=== PATIENT | female | born 1995 | race Caucasian/White ===

== ENCOUNTER → 2017-09-21 16:54 | Outpatient (CLI) | payer OTHER, SELFPAY ==
[2017-09-21 20:28] LABS: Chlamydia Trachomatis by PCR Negative (Negative); Neisserai gonorrhoeae by PCR Negative (Negative); Probe Check PASS; Sample Adequacy Control PASS; Specimen Processing Control PASS
== END ==
PROVIDERS: Visit Provider Obstetrics & Gynecology
DX: Z34.00 Encounter for supervision of normal first pregnancy, unspecified trimester (principal)
CPT/HCPCS: 87086; 87088; 87491; 87591

== ENCOUNTER → 2017-10-23 15:28 | Outpatient (CLI) | payer OTHER, SELFPAY ==
[2017-10-23 16:23] LABS: Absolute Lymphocyte Count 1.77 X10^3/ul (0.83-4.51); Basophil# 0.02 X10^3/uL; Basophil% 0.3 % (0-1); Eosinophil# 0.06 X10^3/uL; Eosinophils% 0.8 % (0-5); Hemoglobin 13.3 g/dl (12.0-15.0); Lymphocyte # 1.77 X10^3/ul (4.0); Lymphocyte % 23.9 % (19-41); Mean Corp Hgb Conc 34.1 g/gl (32-36); Mean Corpuscular Volume 87.8 fL (81-99); Mean Platelet Vol. 9.4 fl (6.2-12.0); Monocyte# 0.61 X10^3/uL; Monocyte% 8.2 % (0-10); Neutrophil # 4.95 X10^3/uL (2.7-7.7); Neutrophil % 66.7 % (47-70); Platelet Count 184 K/mm3 (150-450); RBC Distribution Width CV 12.9 % (11.6-14.6); RBC Distribution Width SD 41.6 fl (35.1-43.9); Red Blood Count 4.44 M/mm3 (4.2-5.4); White Blood Count 7.4 K/mm3 (4.4-11.0)
[2017-10-23 16:25] LABS: POSITIVE COUNT NO; POSITIVE DIFFERENTIAL NO; POSITIVE MORPHOLOGY NO
[2017-10-24 09:46] LABS: HIV - WCH Non-Reactive (Nonreactive); Rubella IgG 3.1 IU/mL
[2017-10-25 08:45] LABS: HEPATITIS B SURFACE AG Negative (Negative)
[2017-10-26 05:01] LABS: Rapid Plasmin Reagin (RPR) NONREACTIVE (NONREACTIVE)
== END ==
PROVIDERS: Visit Provider Obstetrics & Gynecology
DX: Z34.00 Encounter for supervision of normal first pregnancy, unspecified trimester (principal)
CPT/HCPCS: 36415; 85025; 86592; 86703; 86762; 86850; 86900; 87340

== ENCOUNTER → 2017-12-05 12:07 | Outpatient (CLI) | payer OTHER, SELFPAY ==
--- NOTE | 2017-12-05 12:30 | US_ITS ---
STUDY: SECOND AND THIRD TRIMESTER OBSTETRICAL ULTRASOUND REASON FOR EXAM: Female, 22 years old. Routine survey. LMP: December 21, 2017. TECHNIQUE: Transabdominal PRIOR ULTRASOUND: None. FINDINGS: There is a single intrauterine fetus. The fetus is in a breech presentation. There is demonstrated cardiac activity with a heart rate of 150 bpm. There is a normal amniotic fluid volume. The largest amniotic fluid pocket measures 5.3 cm x 7.9 cm.The placenta is fundal and not low-lying. There are Grade 1 placental changes. The cervix measures 5.8 cm in length. The adnexal regions are not visualized. BIOMETRY: BPD: 4.7 cm: 20 weeks, 2 days HC: 17.48 cm: 20 weeks, 1 days AC: 14.46 cm: 19 weeks, 6 days FL: 2.95 cm: 19 weeks, 1 days CI: 80% FL/BPD: 63% FL/HC: FL/AC: 20% HC/AC: 1.21 age by current US: 19 weeks, 6 days. CRYSTAL by current US: April 25, 2018. Estimated weight: 298 grams, +/- 44 grams, 61 %. Age by LMP: 19 weeks, 2 days. CRYSTAL by LMP: April 29, 2018. ANATOMY: Gender: Male Cranium: Normal lateral ventricles. Normal choroid plexus. Normal cerebellum. Normal cisterna magna. Normal face, nose and lips. Chest: Normal 4-chamber heart. Abdomen/Pelvis: Normal diaphragm. Normal stomach. Normal abdominal wall. Normal cord insertion. Normal 3 vessel cord. Normal kidneys. Normal bladder. Spine: Normal cervical spine. Normal thoracic spine. Normal lumbar spine. Normal sacrum. Extremities: Normal bilateral upper extremities. Normal bilateral lower extremities. US/OB Anatomy Scan IMPRESSION: Single live intrauterine gestation with mean gestational age of 19 weeks and 6 days. Electronically Signed: Veto Ma MD at 15:27 EDT Tel [phone], Service support ,
== END ==
PROVIDERS: Visit Provider Obstetrics & Gynecology
DX: Z34.00 Encounter for supervision of normal first pregnancy, unspecified trimester (principal)
CPT/HCPCS: 76805

== ENCOUNTER → 2018-02-05 11:15 | Outpatient (CLI) | payer OTHER, SELFPAY ==
[2018-02-05 12:25] LABS: Absolute Lymphocyte Count 1.33 X10^3/ul (0.83-4.51); Absolute Neutrophil Count 5.9 X10^3/uL (2.0-7.7); Basophil# 0.01 X10^3/uL; Basophil% 0.1 % (0-1); Eosinophil# 0.05 X10^3/uL; Eosinophils% 0.6 % (0-5); Hematocrit 34.5 % (37-47); Hemoglobin 11.6 g/dl (12.0-15.0); Lymphocyte # 1.33 X10^3/ul (4.0); Mean Corp Hgb Conc 33.6 g/gl (32-36); Mean Corpuscular Volume 92.2 fL (81-99); Mean Platelet Vol. 9.7 fl (6.2-12.0); Monocyte# 0.52 X10^3/uL; Monocyte% 6.6 % (0-10); Neutrophil # 5.92 X10^3/uL (2.7-7.7); Neutrophil % 75.6 % (47-70); Platelet Count 174 K/mm3 (150-450); RBC Distribution Width CV 13.2 % (11.6-14.6); RBC Distribution Width SD 44.6 fl (35.1-43.9); Red Blood Count 3.74 M/mm3 (4.2-5.4); White Blood Count 7.8 K/mm3 (4.4-11.0)
[2018-02-05 12:29] LABS: POSITIVE COUNT NO; POSITIVE DIFFERENTIAL NO; POSITIVE MORPHOLOGY NO
[2018-02-05 12:45] LABS: Glucose Challenge Gest 1H 50g 82 mg/dL (70-140)
== END ==
PROVIDERS: Nurse Practitioner Women's Health; Visit Provider Obstetrics & Gynecology
DX: Z34.90 Encounter for supervision of normal pregnancy, unspecified, unspecified trimester (principal)
CPT/HCPCS: 36415; 82950; 85025; 86850; 86900

== ENCOUNTER → 2018-04-02 16:08 | Outpatient (CLI) | payer OTHER, SELFPAY ==
[2018-04-02 18:58] LABS: Group B Strep DNA By PCR Negative (Negative); Internal Control PASS; Probe Check PASS; Specimen Processing Control PASS
== END ==
PROVIDERS: Referring Provider Nurse Practitioner Women's Health; Visit Provider Nurse Practitioner Women's Health
DX: Z34.90 Encounter for supervision of normal pregnancy, unspecified, unspecified trimester (principal)
CPT/HCPCS: 87081; 87653

== ENCOUNTER 2018-05-02 19:34 | Inpatient (IN) | payer OTHER, SELFPAY ==
[2018-05-02 20:31] VITALS: BMI 30.6
[2018-05-02] MEDS: Lactated Ringers 1,000 ML 50 ML IV ×2 (20:40→23:38)
--- NOTE | 2018-05-02 21:03 | PCM.HP.OB ---
- Problem List (1) SROM (spontaneous rupture of membranes) Status: Acute (2) Status: Acute Qualifiers: Comment: genetic and NTD screening declined. anatomy scan normal. (3) Contraceptive management Status: Acute Qualifiers: Comment: Mirena IUD pp (4) Rubella non-immune status, antepartum Status: Acute (5) Rh negative status during Status: Acute Qualifiers: Comment: rhogam 28 weeks prn (6) Supervision of normal Status: Acute Qualifiers: Comment: CRYSTAL 04/29/18 boy Radhames History Date of Admission: 05/02/18 Final CRYSTAL: 04/29/18 Gestational age: 40 Weeks and 3 Days History of this : This is a 22 year-old, at 40w3d weeks gestational age presents IAL with SROM clear fluid. she denies any vb and admits good fm. she has had an uncomplicated Allergies No Known Allergies Allergy (Verified 05/02/18 20:30) Home Medications: Home Medications vitamin,calcium,treodvco-fmjw-vzwai acid tablet 1 tab PO QDAY 09/21/17 Smoking Status: Never smoker Alcohol: None Number of Fetus(es): 1 Heart Tracins moderate variability reactive cat I tracing TOCO Analysis: q2-3 History Past Pregnancies: Past Pregnancies Delivery Date Name GA/Weeks Outcome Route Weight Gender Labor Length Anesthesia Delivery Location Provider FOB Labs: Mom's Labs & Results 05/02/18 05/02/18 20:40 20:40 WBC Pending RBC Pending Hgb Pending Hct Pending MCV Pending MCH Pending MCHC Pending RDW Pending RDW Differential Pending Plt Count Pending Blood Type Pending Antibody Screen Pending Social History Smoking Status Never smoker Expected Delivery Method: Spontaneous Vaginal Review of Systems Constitutional: Denies: Fever, Malaise Eyes: Denies: Blurred vision, Vision Change HEENT: Denies: Head Aches, Visual Changes Cardiovascular: Denies: Chest Pain, Palpitations Respiratory: Denies: Cough, Shortness of Breath, Wheezing Gastrointestinal: Denies: Abdominal Pain, Diarrhea, Nausea, Vomiting Genitourinary: Denies: Dysuria, Hematuria Musculoskeletal: Denies: Joint Pain, Muscle pain Skin: Denies: Lesions, Rash Neurological: Denies: Blurred vision, Focal weakness, Headaches Psychiatric: Denies: Anxiety, Depression Endocrine: Denies: Heat/ Cold Intolerance Hematologic/ Lymphatic: Denies: Easy Bruising, Easy Bleeding Physical Exam General: Alert, Cooperative, No apparent distress HEENT: Atraumatic, Normocephalic. Negative for: Thyromegaly, Lymphadenopathy Cardiovascular: Regular rate Lungs: Normal air movement Abdomen: Soft, Non Tender, Gravid Neurological: Deep Tendon Reflexes 2+/4 and Symmetrical, Neuro grossly intact. Negative for: Clonus EDUCATIONAL AID: Normal external genitalia. Negative for: Vulvar lesions Estimated gestational size: Appropriate for gestational size Presentation: Cephalic Assessment/Plan All Active Problems (Last Reviewed 05/02/18 @ 11:35 by Génesis Wong) SROM (spontaneous rupture of membranes) (Acute) (Acute) Contraceptive management (Acute) Rubella non-immune status, antepartum (Acute) Rh negative status during (Acute) Supervision of normal (Acute) Influenza B (Resolved) This is a 22 year-old, at 40w3d weeks gestational age presents IAL SROM Patient presents IAL, plan expectant management for , pitocin PRN. Pain management: plans epidural. GBS neg. Management of any complications: none I have reviewed the [facility] and made any clinically relevant updates.
--- NOTE | 2018-05-02 21:06 | HP.PCM_ITS ---
- Problem List (1) SROM (spontaneous rupture of membranes) Status: Acute (2) Status: Acute Qualifiers: Comment: genetic and NTD screening declined. anatomy scan normal. (3) Contraceptive management Status: Acute Qualifiers: Comment: Mirena IUD pp (4) Rubella non-immune status, antepartum Status: Acute (5) Rh negative status during Status: Acute Qualifiers: Comment: rhogam 28 weeks prn (6) Supervision of normal Status: Acute Qualifiers: Comment: CRYSTAL 04/29/18 boy Radhames History Date of Admission: 05/02/18 Final CRYSTAL: 04/29/18 Gestational age: 40 Weeks and 3 Days History of this : This is a 22 year-old, at 40w3d weeks gestational age presents IAL with SROM clear fluid. she denies any vb and admits good fm. she has had an uncomplicated Allergies No Known Allergies Allergy (Verified 05/02/18 20:30) Home Medications: Home Medications vitamin,calcium,kgfrilyn-tgxn-cyonf acid tablet 1 tab PO QDAY 09/21/17 Smoking Status: Never smoker Alcohol: None Number of Fetus(es): 1 Heart Tracins moderate variability reactive cat I tracing TOCO Analysis: q2-3 History Past Pregnancies: Past Pregnancies Delivery Date Name GA/Weeks Outcome Route Weight Gender Labor Length Anesthesia Delivery Location Provider FOB Labs: Mom's Labs & Results 05/02/18 05/02/18 20:40 20:40 WBC Pending RBC Pending Hgb Pending Hct Pending MCV Pending MCH Pending MCHC Pending RDW Pending RDW Differential Pending Plt Count Pending Blood Type Pending Antibody Screen Pending Social History Smoking Status Never smoker Expected Delivery Method: Spontaneous Vaginal Review of Systems Constitutional: Denies: Fever, Malaise Eyes: Denies: Blurred vision, Vision Change HEENT: Denies: Head Aches, Visual Changes Cardiovascular: Denies: Chest Pain, Palpitations Respiratory: Denies: Cough, Shortness of Breath, Wheezing Gastrointestinal: Denies: Abdominal Pain, Diarrhea, Nausea, Vomiting Genitourinary: Denies: Dysuria, Hematuria Musculoskeletal: Denies: Joint Pain, Muscle pain Skin: Denies: Lesions, Rash Neurological: Denies: Blurred vision, Focal weakness, Headaches Psychiatric: Denies: Anxiety, Depression Endocrine: Denies: Heat/ Cold Intolerance Hematologic/ Lymphatic: Denies: Easy Bruising, Easy Bleeding Physical Exam General: Alert, Cooperative, No apparent distress HEENT: Atraumatic, Normocephalic. Negative for: Thyromegaly, Lymphadenopathy Cardiovascular: Regular rate Lungs: Normal air movement Abdomen: Soft, Non Tender, Gravid Neurological: Deep Tendon Reflexes 2+/4 and Symmetrical, Neuro grossly intact. Negative for: Clonus SENIOR TECHNICAL SUPPORT ENGINEER: Normal external genitalia. Negative for: Vulvar lesions Estimated gestational size: Appropriate for gestational size Presentation: Cephalic Assessment/Plan All Active Problems (Last Reviewed 05/02/18 @ 11:35 by Génesis Wong) SROM (spontaneous rupture of membranes) (Acute) (Acute) Contraceptive management (Acute) Rubella non-immune status, antepartum (Acute) Rh negative status during (Acute) Supervision of normal (Acute) Influenza B (Resolved) This is a 22 year-old, at 40w3d weeks gestational age presents IAL SROM Patient presents IAL, plan expectant management for , pitocin PRN. Pain management: plans epidural. GBS neg. Management of any complications: none I have reviewed the [facility] and made any clinically relevant updates.
[2018-05-02 21:08] LABS: Hematocrit 37.5 % (37-47); Hemoglobin 12.5 g/dl (12.0-15.0); Mean Corp Hgb Conc 33.3 g/gl (32-36); Mean Corpuscular Hgb 30.1 pg (27.0-32.0); Mean Corpuscular Volume 90.4 fL (81-99); Platelet Count 186 K/mm3 (150-450); RBC Distribution Width CV 13.4 % (11.6-14.6); Red Blood Count 4.15 M/mm3 (4.2-5.4); White Blood Count 8.6 K/mm3 (4.4-11.0)
[2018-05-02 21:11] LABS: Scan Indicated on CBC? Y/N NO
[2018-05-03] MEDS: fentaNYL-bupivacaine (epidural) 100 ML BAG EPIDURAL ×5 (00:16→21:05)
[2018-05-03] MEDS: Oxytocin 30 units/NS 500 ml 30 UNITS/500 ML IV.SOLN IV ×2 (01:56→18:47)
[2018-05-03] MEDS: Lactated Ringers 1,000 ML 50 ML IV ×4 (04:42→19:26)
[2018-05-03] MEDS: Ondansetron 4 MG/2 ML Vial IV (07:29)
--- NOTE | 2018-05-03 15:41 | PCM.PN.BLA ---
Progress Note fht 120-130 moderate variability reactive no decels. cat I tracing. continue pit per protocol.
[2018-05-04] MEDS: Lactated Ringers 1,000 ML 50 ML IV (00:37)
[2018-05-04] MEDS: fentaNYL-bupivacaine (epidural) 100 ML BAG EPIDURAL (01:57)
[2018-05-04] MEDS: Ondansetron 4 MG/2 ML Vial IV (03:39)
[2018-05-04] MEDS: Oxytocin 30 units/NS 500 ml 30 UNITS/500 ML IV.SOLN 334 UNITS IV (05:14)
[2018-05-04] MEDS: Oxytocin 30 units/NS 500 ml 30 UNITS/500 ML IV.SOLN 167 UNITS IV (05:44)
--- NOTE | 2018-05-04 06:29 | PCM.OB.VAG ---
- Problem List (1) SROM (spontaneous rupture of membranes) Status: Acute (2) Status: Acute Qualifiers: Comment: genetic and NTD screening declined. anatomy scan normal. (3) Contraceptive management Status: Acute Qualifiers: Comment: Mirena IUD pp (4) Rubella non-immune status, antepartum Status: Acute (5) Rh negative status during Status: Acute Qualifiers: Comment: rhogam 28 weeks prn (6) Supervision of normal Status: Acute Qualifiers: Comment: CRYSTAL 04/29/18 boy Radhames Vaginal Delivery Maternal Presentation: Spontaneous Rupture of Membranes Method of Induction: Pitocin Amniotic Membrane Rupture Type: Spontaneous at home Amniotic Fluid Description: Clear Final CRYSTAL: 04/29/18 Gestational age: 40 Weeks and 6 Days Date of Procedure: 05/04/18 Pre-Operative Diagnosis: SROM Post-Operative Diagnosis: Same Surgery/ Procedure Performed: Spontaneous Vaginal Delivery Type of Anesthesia: Epidural Description of Procedure: Patient began pushing and delivered the head in the CYNDEE presentation. The head was delivered atraumatically . The anterior and posterior shoulders delivered without complication followed by the rest of the and the infant was placed on the maternal abdomen. Delayed cord clamping was employed for approximately 60 seconds. Cord was clamped and cut and gentle traction was applied to the cord and the placenta delivered spontaneously immediately following it was noted to be intact with three-vessel cord. The perineum and vagina were inspected and noted to have a small first-degree perineal laceration that was repaired in the usual fashion with 3-0 Vicryl repeat. EBL was within normal limits. Patient and infant tolerated delivery well. Presentation: CYNDEE Placental Delivery Description: Spontaneous Cord Vessel Description: 3 Vessels Cord Entanglement: None A gender: Male Episiotomy Description: None Laceration: Perineal Extension/lac, 1st degree Medications given after delivery: IV Pitocin Complications: None
--- NOTE | 2018-05-04 07:05 | PLAC_PTH ---
PATIENT: BELIA BEACH LOC: [facility] U#:[id number] AGE/SX: ROOM: WP017 RE05/02/[address]: Dr. Rosa Zhou MD : [id number] BED: 1 DIS: 05/06/2018 SPEC #: [id number] RECD: 05/04/18 07:23 STATUS: KIERA REAlexus #: [id number] DELMY: 05/04/18 07:[address]: Rosa Zhou DEPT: SURGICAL PATHOLOGY RECD BY: Judd Zendejas ENTERED: 05/06/18 09:38 SP TYPE: PLACENTA OTHR DR: No Primary Care Phys Tissues: Placenta, NOS Procedures: Surgery Specimen Level V HEADER OPERATION: Vaginal delivery PRE-OP DIAGNOSIS: Vaginal delivery TISSUE SUBMITTED: Placenta MICROSCOPIC DIAGNOSIS Placenta: Placental disc - third trimester placenta (450 gm). - Focal acute vasculitis of subamnionic blood vessels. Membranes - acute chorioamnionitis. Umbilical cord - three blood vessels and acute funisitis. HERB:alban 05/07/18 MICROSCOPIC DESCRIPTION Slides are reviewed. GROSS DESCRIPTION SPECIMEN: PLACENTA / CLINICAL INFORMATION: A. Weight: 3.32 kg B. Gestational Age: 40 weeks C. Sex: Male PLACENTAL WEIGHT (POST FIXATION): 450 gm PLACENTAL DIMENSIONS: 19 x 17 x 3 cm PLACENTAL SHAPE: Usual ovoid PLACENTAL WEIGHT FOR GESTATIONAL AGE: Within 10-99th percentile MEMBRANES - Present A. Insertion: Marginal B. Site of rupture from edge: 7 cm from edge of placental disc C. Color of membrane: Kemp, mucoidy D. Abnormalities: None UMBILICAL CORD - Present A. Color: Kemp-galvin B. Insertion: Paracentral C. Length: 30 cm D. Diameter: 1 cm E. Number of vessels: Three F. Abnormalities: None PLACENTAL DISC - Present A. Color of surface: Kemp-galvin B. surface abnormalities: None C. Maternal cotyledons: Intact with minimal tears D. Attached retro placental clot: No clot E. Cut surface: Dark red and spongy F. Lesions: None G. Separate clot: Absent SECTIONS SUBMITTED: 1. Membrane roll 2. Cord, maternal end 3. Cord, end 4. Placental disc, and maternal surfaces 5. Placental disc, and maternal surfaces 6. Placental disc, and maternal surfaces SJ:alban 05/06/18 TC:2 CPT: 79894
[2018-05-04 07:23] LABS: Pathology Specimen OB SEE PATHOLOGY REPORT
[2018-05-04 07:30] VITALS: BP 118/63; PULSE 107; RESP 20; TEMP 37.2
[2018-05-04] MEDS: Naproxen 250 MG Tablet PO ×2 (07:44→16:32)
[2018-05-04] MEDS: Lactated Ringers 1,000 ML 15 ML IV (07:44)
--- NOTE | 2018-05-04 08:09 | EKG12_ITS ---
Test Reason : ARRYTHMIA Blood Pressure : / mmHG Vent. Rate : 098 BPM Atrial Rate : 098 BPM P-R Int : 138 ms QRS Dur : 082 ms QT Int : 348 ms P-R-T Axes : 035 047 036 degrees QTc Int : 444 ms Normal sinus rhythm Normal ECG Confirmed by JOSE SWANN, DAWSON ([id number]), makeup editor MONAE JACKSON ([id number]) on 05/09/2018 3:56:00 PM Referred By: Rosa Zhou Confirmed By:DAWSON GARCIA MD
[2018-05-04] MEDS: 0.9% Saline Lock 10 ML Syringe IV (08:36)
[2018-05-04 12:45] VITALS: BP 120/63; PULSE 73; RESP 16; TEMP 36.6
[2018-05-04 16:20] VITALS: BP 123/75; PULSE 81; RESP 16; TEMP 36.5
[2018-05-04] MEDS: Acetaminophen 500 MG Tablet 1000 MG PO (18:27)
[2018-05-04 19:50] VITALS: BP 131/59; PULSE 73; RESP 16; TEMP 36.6
[2018-05-05] VITALS: BP 111/55; PULSE 63; RESP 16; TEMP 36.4
[2018-05-05] MEDS: Naproxen 250 MG Tablet PO (01:39)
[2018-05-05 04:00] VITALS: BP 115/63; PULSE 63; RESP 16; TEMP 36.4
[2018-05-05 08:55] VITALS: BP 120/79; PULSE 70; RESP 18; TEMP 36.5
--- NOTE | 2018-05-05 10:39 | PCM.PN.OB ---
Patient Problems: Active and Suspected Problems (Last Reviewed 05/02/18 @ 11:35 by Génesis Wong) SROM (spontaneous rupture of membranes) (Acute) Subjective: doing well no complaints - Physical Exam General: Alert, Oriented x3 Vital Signs Temp Pulse Resp BP 97.7 F L 70 18 120/79 05/05/18 08:55 05/05/18 08:55 05/05/18 08:55 05/05/18 08:55 Weight: 178 lb 9.191 oz Body Mass Index (BMI) 30.6 Intake and Output for Last 24 Hours 05/03/18 05/04/18 05/05/18 23:59 23:59 23:59 Intake Total 3982 / 3982 5796 / 5796 Output Total 3650 / 3650 1445 / 1445 Balance 332 / 332 4351 / 4351 Medical Necessity - Tobacco Use Smoking Status: Never smoker Assessment/Plan All Active Problems (Last Reviewed 05/02/18 @ 11:35 by Génesis Wong) SROM (spontaneous rupture of membranes) (Acute) (Acute) Contraceptive management (Acute) Rubella non-immune status, antepartum (Acute) Rh negative status during (Acute) Supervision of normal (Acute) Influenza B (Resolved) s/p PPD # 1 1. routine post delivery care 2. breast feeding- support given 3. rh neg- rhogam 4. rubella non immune- give MMR
[2018-05-05 14:10] VITALS: BP 119/73; PULSE 86; RESP 20; TEMP 36.7
[2018-05-05 19:36] VITALS: BP 133/78; PULSE 76; RESP 17; TEMP 36.9; O2SAT 98
[2018-05-06 00:06] VITALS: BP 108/55; PULSE 62; RESP 15; TEMP 36.9; O2SAT 99
[2018-05-06 04:54] VITALS: BP 137/64; PULSE 81; RESP 18; TEMP 36.7; O2SAT 97
[2018-05-06 07:30] VITALS: BP 120/76; PULSE 76; RESP 16; TEMP 36.6
--- NOTE | 2018-05-06 08:00 | PCM.PN.OB ---
Patient Problems: Active and Suspected Problems (Last Reviewed 05/02/18 @ 11:35 by Génesis Wong) SROM (spontaneous rupture of membranes) (Acute) Subjective: Doing well. Denies CP, SOB. States feels well emotionally. Pain controlled. - Physical Exam General: Alert, Oriented x3 Abdomen: Soft, Non Tender, - - FF at U Vital Signs Temp Pulse Resp BP Pulse Ox 97.9 F 76 16 120/76 97 05/06/18 07:30 05/06/18 07:30 05/06/18 07:30 05/06/18 07:30 05/06/18 04:54 Oxygen Delivery Method Room Air Weight: 178 lb 9.191 oz Body Mass Index (BMI) 30.6 Intake and Output for Last 24 Hours 05/04/18 05/05/18 05/06/18 23:59 23:59 23:59 Intake Total 5796 / 5796 Output Total 1445 / 1445 Balance 4351 / 4351 Medical Necessity - Tobacco Use Smoking Status: Never smoker Assessment/Plan All Active Problems (Last Reviewed 05/02/18 @ 11:35 by Génesis Wong) SROM (spontaneous rupture of membranes) (Acute) (Acute) Contraceptive management (Acute) Rubella non-immune status, antepartum (Acute) Rh negative status during (Acute) Supervision of normal (Acute) Influenza B (Resolved) PPD#2: Routine care. . Pain controlled. Needs rhogam and rubella. No depression concerns. Home today.
--- NOTE | 2018-05-06 08:04 | DCINST_ITS ---
Additional Instructions: If you experience any of the following, contact your healthcare provider. * Bleeding that soaks a pad every hour for 2 hours * Fever 100.4 or higher * Unrelieved incision or abdominal pain * Swelling, redness, discharge or bleeding from your incision or episiotomy site * Your incision begins to separate * Problems urinating (including inability to urinate or burning while urinating). * Visual changes * Severe headache * Flu-like symptoms * Pain or redness in one of both of your breasts * Pain, warmth, tenderness or swelling in your legs, especially the calf area * Frequent nausea and vomiting * Symptoms of depression or anxiety If you experience any of the following, call 911 or go to the nearest Emergency Room. * Chest pain * Problems breathing * Seizure activity * Partial or complete paralysis of a body part, slurred speech, weakness or drooping of the face, or a sudden inability to walk or hold your balance Allergies/Adverse Reactions: Allergies No Known Allergies Allergy (Verified 05/02/18 20:30) Medications to take at Discharge vitamin,calcium,wwytywgy-amaa-ovfee acid tablet 1 tab PO QDAY 09/21/17 Primary Care Physician: Care Physician,No Primary [Primary Care Provider] - Test Results: Test results from this visit will be discussed in further detail at your follow- up appointment, if applicable.
--- NOTE | 2018-05-06 08:04 | PCM.DCVAG ---
Additional Instructions: If you experience any of the following, contact your healthcare provider. Bleeding that soaks a pad every hour for 2 hours Fever 100.4 or higher Unrelieved incision or abdominal pain Swelling, redness, discharge or bleeding from your incision or episiotomy site Your incision begins to separate Problems urinating (including inability to urinate or burning while urinating). Visual changes Severe headache Flu-like symptoms Pain or redness in one of both of your breasts Pain, warmth, tenderness or swelling in your legs, especially the calf area Frequent nausea and vomiting Symptoms of depression or anxiety If you experience any of the following, call 911 or go to the nearest Emergency Room. Chest pain Problems breathing Seizure activity Partial or complete paralysis of a body part, slurred speech, weakness or drooping of the face, or a sudden inability to walk or hold your balance Allergies/Adverse Reactions: Allergies No Known Allergies Allergy (Verified 05/02/18 20:30) Medications to take at Discharge vitamin,calcium,lhqllbuh-qxzm-uvfqf acid tablet 1 tab PO QDAY 09/21/17 Primary Care Physician: Care Physician,No Primary [Primary Care Provider] - Test Results: Test results from this visit will be discussed in further detail at your follow-up appointment, if applicable.
[2018-05-06 11:45] VITALS: BP 131/84; PULSE 75; RESP 18; TEMP 36.7
[2018-05-07 14:43] LABS: Pathology Specimen OB SEE PATHOLOGY REPORT
== END 2018-05-06 13:00 | disposition home or self-care (01) | DRG 806 ==
PROVIDERS: Admitting Provider Obstetrics & Gynecology; Visit Provider Obstetrics & Gynecology
DX: O70.0 First degree perineal laceration during delivery (principal); O36.0930 Maternal care for other rhesus isoimmunization, third trimester, not applicable or unspecified; Z37.0 Single live birth; Z3A.40 40 weeks gestation of pregnancy
CPT/HCPCS: 59025; 59050; 76815; 85027; 85461; 86850; 86900; 88307; 90384; 93005; 99218; J7120; A4216; G0378; J0295; J2405; J2790

== ENCOUNTER → 2018-06-14 16:58 | Outpatient (CLI) | payer OTHER, SELFPAY ==
[2018-06-14 11:28] VITALS: BMI 25.9
[2018-06-19 09:26] LABS: HPV Reflexed? NOT INDICATED
== END ==
PROVIDERS: Referring Provider Obstetrics & Gynecology; Visit Provider Obstetrics & Gynecology
DX: Z12.4 Encounter for screening for malignant neoplasm of cervix (principal)
CPT/HCPCS: 87624; 88175; G0145

== ENCOUNTER 2021-08-15 16:15 | Outpatient (CLI) | payer OTHER, SELFPAY ==
[2021-08-18 16:48] LABS: HPV Reflexed? NOT INDICATED
== END 2021-08-15 23:59 | disposition home or self-care (01) ==
LOC: LABSPEC 16:16
PROVIDERS: Visit Provider Nurse Practitioner Women's Health
DX: Z12.4 Encounter for screening for malignant neoplasm of cervix (principal)
CPT/HCPCS: 88175; G0145

== ENCOUNTER → 2022-04-20 | Outpatient (CLI) | payer OTHER, SELFPAY ==
[2022-04-20 10:51] LABS: Absolute Neutrophil Count 3.4 X10^3/uL (2.0-7.7); Basophil# 0.03 X10^3/uL; Basophil% 0.5 % (0-1); Eosinophil# 0.07 X10^3/uL; Eosinophils% 1.2 % (0-5); Hematocrit 40.1 % (37-47); Hemoglobin 13.6 g/dL (12.0-15.0); Lymphocyte % 29.2 % (19-41); Mean Corp Hgb Conc 33.9 g/dL (32-36); Mean Corpuscular Hgb 30.4 pg (27.0-32.0); Mean Corpuscular Volume 89.5 fL (81-99); Mean Platelet Vol. 9.8 fl (6.2-12.0); Monocyte# 0.61 X10^3/uL; Monocyte% 10.5 % (0-10); NRBC Flagged by Analyzer 0 % (0-5); Neutrophil % 58.4 % (47-70); Platelet Count 207 K/mm3 (150-450); RBC Distribution Width CV 11.9 % (11.6-14.6); RBC Distribution Width SD 38.7 fl (35.1-43.9); Red Blood Count 4.48 M/mm3 (4.2-5.4); White Blood Count 5.8 K/mm3 (4.4-11.0)
[2022-04-20 12:33] LABS: HIV - WCH Non-Reactive (Nonreactive); Hepatitis B Surface Antigen Non-Reactive (Nonreactive); Hepatitis C Antibody Non-Reactive (Nonreactive); Rubella IgG Reactive (Nonreactive); Syphilis Antibodies Non-reactive
[2022-04-24 22:06] LABS: Chlamydia By Nucleic Acid AMP Negative (Negative)
[2022-04-25 12:59] LABS: Gonococcus By Nucleic Acid AMP Negative (Negative)
== END | disposition home or self-care (01) ==
PROVIDERS: Referring Provider Obstetrics & Gynecology; Visit Provider Obstetrics & Gynecology
DX: Z34.91 Encounter for supervision of normal pregnancy, unspecified, first trimester (principal)
CPT/HCPCS: 36415; 85025; 86703; 86762; 86780; 86803; 86850; 86900; 86901; 87086; 87088; 87340; 87491; 87591

== ENCOUNTER → 2022-09-06 | Outpatient (CLI) | payer OTHER, SELFPAY ==
[2022-09-06 15:36] LABS: Glucose Challenge Gest 1H 50g 98 mg/dL (70-140)
[2022-09-06 16:30] LABS: Absolute Neutrophil Count 5.1 X10^3/uL (2.0-7.7); Basophil# 0.02 X10^3/uL; Basophil% 0.3 % (0-1); Eosinophil# 0.06 X10^3/uL; Eosinophils% 0.9 % (0-5); Hemoglobin 11.8 g/dL (12.0-15.0); Lymphocyte % 17.1 % (19-41); Mean Corp Hgb Conc 34.7 g/dL (32-36); Mean Corpuscular Hgb 31.4 pg (27.0-32.0); Mean Corpuscular Volume 90.4 fL (81-99); Mean Platelet Vol. 10.2 fl (6.2-12.0); Monocyte# 0.58 X10^3/uL; Monocyte% 8.3 % (0-10); NRBC Flagged by Analyzer 0 % (0-5); Neutrophil # 5.14 X10^3/uL (2.7-7.7); Neutrophil % 73.3 % (47-70); Platelet Count 176 K/mm3 (150-450); RBC Distribution Width CV 12.9 % (11.6-14.6); RBC Distribution Width SD 42.5 fl (35.1-43.9); Red Blood Count 3.76 M/mm3 (4.2-5.4)
== END | disposition home or self-care (01) ==
LOC: LAB 13:36
PROVIDERS: Referring Provider Obstetrics & Gynecology; Visit Provider Obstetrics & Gynecology
DX: O36.0990 Maternal care for other rhesus isoimmunization, unspecified trimester, not applicable or unspecified (principal); Z13.1 Encounter for screening for diabetes mellitus; Z3A.00 Weeks of gestation of pregnancy not specified
CPT/HCPCS: 36415; 82950; 85025; 86900; 86901

== ENCOUNTER → 2022-10-25 | Outpatient (CLI) | payer OTHER, SELFPAY ==
[2022-10-25 15:21] LABS: ROM Internal Control Test YES-OK TO RESULT pt. (Internal QC); ROM Patient Test Negative (Negative)
== END | disposition home or self-care (01) ==
PROVIDERS: Visit Provider Obstetrics & Gynecology
DX: O26.899 Other specified pregnancy related conditions, unspecified trimester (principal); N89.8 Other specified noninflammatory disorders of vagina; Z3A.00 Weeks of gestation of pregnancy not specified
CPT/HCPCS: 84112; 87081

== ENCOUNTER 2022-11-25 19:10 | Inpatient (IN) | payer OTHER, SELFPAY ==
[2022-11-25] VITALS (31 sets, daily range): BP systolic 102–145; BP diastolic 52–90; PULSE 72–101; TEMP 36.8; O2SAT 91–100; BMI 32.1
[2022-11-25 17:41] LABS: ROM Internal Control Test YES-OK TO RESULT pt. (Internal QC); ROM Patient Test Negative (Negative)
[2022-11-25] MEDS: Lactated Ringers 1,000 ML 50 ML IV (20:15)
[2022-11-25 20:27] LABS: Absolute Lymphocyte Count 1.83 X10^3/uL (0.83-4.51); Absolute Neutrophil Count 6.5 X10^3/uL (2.0-7.7); Basophil# 0.04 X10^3/uL; Basophil% 0.4 % (0-1); Eosinophil# 0.06 X10^3/uL; Eosinophils% 0.7 % (0-5); Hematocrit 37.3 % (37-47); Hemoglobin 12.3 g/dL (12.0-15.0); Lymphocyte # 1.83 X10^3/ul (0.83-4.51); Mean Corpuscular Hgb 29.9 pg (27.0-32.0); Mean Corpuscular Volume 90.8 fL (81-99); Mean Platelet Vol. 10.7 fl (6.2-12.0); Monocyte# 0.74 X10^3/uL; Monocyte% 8.1 % (0-10); NRBC Flagged by Analyzer 0 % (0-5); Neutrophil # 6.45 X10^3/uL (2.7-7.7); Neutrophil % 70.5 % (47-70); Platelet Count 213 K/mm3 (150-450); RBC Distribution Width CV 13.1 % (11.6-14.6); RBC Distribution Width SD 42.6 fl (35.1-43.9); Red Blood Count 4.11 M/mm3 (4.2-5.4); White Blood Count 9.2 K/mm3 (4.4-11.0)
[2022-11-25] MEDS: LACTATED RINGERS 500 ML 999 ML IV (21:25)
[2022-11-25 21:30] LABS: Syphilis Antibodies Non-reactive
--- NOTE | 2022-11-25 22:05 | HP.PCM.OB_ITS ---
HPI - General General Date of Admission: 11/25/22 HPI Narrative BELIA BEACH, is a 27 F who presents IAL made change 3-4 cm no vb good fm no lof. Maternal Data Information CRYSTAL Calculator Estimated Delivery Date Method Current WG Current Estimate 11/24/22 LMP (Certain) 40w 2d Other Estimates 11/30/22 Ultrasound #1 39w 3d PFSH PFSH Medical History History of asthma Home Medications PNV no.63-iron,carbonyl 27mg-folic acid 800 mcg-dha 200 mg capsule 1 cap PO DAILY 04/11/22 [History Last Taken 11/25/22 08:00] sertraline 50 mg tablet (Zoloft) 50 mg PO DAILY anxiety, depression 11/25/22 [History Last Taken 11/25/22 09:00] Allergy/AdvReac Type Severity Reaction Status Date / Time No Known Allergies Allergy Verified 11/25/22 20:29 Social History adopted: No household members: spouse and children number of children: 1 current occupational status: employed current occupation: [employer] current occupational exposures/hazards: No pets and animals: No history of recent travel: Yes ([place]) out of state: Yes out of country: No sexually active: Yes Smoking Status: Never smoker alcohol intake: former details: socially not while substance use type: does not use well-balanced diet: daily or most days caffeine: Yes Type: coffee Number of servings: 1 eating out: 1-3 times/week during the past year weight has: remained stable what type of physical activity do you participate in: other details: crossfit frequency: daily duration: 45-60 minutes/day rose/taoist: Holiness seatbelt use: always do you feel safe at home: Yes additional social history: - Radhames Patient is self Employed History 2 Elective abortions Hx Para 1 Spontaneous abortions Hx # Term Pregnancies Ectopic pregnancies Hx # Pregnancies Multiple births # of living children 1 Past Pregnancies Del. Date Name GA/Weeks Outcome Route Bth Weight Gen Labor Lgth Anesthesia Del Locatn Provider FOB Unknown [place] 40 live - full term Male epidura l [facility] Visit Details Expected Delivery Route/Plan Labor Preferences- CB/BF classes: no labor support person: Radhames labor intervention preferences: [] pain management options preferred: epidural cut cord/dad catch: yes : yes PP control planned: discussed discussed possible routes of delivery and associated risks: [] special requests: [] Plans Covid status: discussed Flu vaccine: discussed Tdap vaccine: declines Rhogam: given LARC form signed: yes Problem list reviewed and updated with the most current plan of care details and appropriate orders placed. Relevant counseling for the gestational age provided. Continue routine care and follow up unless otherwise noted in visit notes/problem list details OB Flowsheet Initial Weight: Not Recorded Date -?-?-?-?-?-?-?-?-?-?-?-?- EGA Weight BP Urine Prot -?-?-?-?-?-?-?-?-?-?-?-?- Glucose FHR FuHt Pres Dilation -?-?-?-?-?-?-?-?-?-?-?-?- Effaced St Visit Note 04/20/22 -?-?-?-?-?-?-?-?-?-?-?-?- 8w 6d 159 lb 121/72 -?-?-?-?-?-?-?-?-?-?-?-?- 160 -?-?-?-?-?-?-?-?-?-?-?-?- SM- CRL cons wit h LMP SM- CRL fairly cons with LMP , didn't get the best views so didn't change the date. pos test at first day of missed menses 05/17/22 -?-?-?-?-?-?-?-?-?-?-?-?- 12w 5d 157 lb 2 oz 112/70 Nega tive -?-?-?-?-?-?-?-?-?-?-?-?- Negative 155 -?-?-?-?-?-?-?-?-?-?-?-?- JV- CRL today st ill consistent with LMP. declines genetics. 06/14/22 -?-?-?-?-?-?-?-?-?-?-?-?- 16w 5d 160 lb 2 oz 100/68 Nega tive -?-?-?-?-?-?-?-?-?-?-?-?- Negative 156 -?-?-?-?-?-?-?-?-?-?-?-?- MH-No Vb. Thinks feeling flutters. No concerns. 07/12/22 -?-?-?-?-?-?-?-?-?-?-?-?- 20w 5d 166 lb 110/59 Negative -?-?-?-?-?-?-?-?-?-?-?-?- Negative 158 -?-?-?-?-?-?-?-?-?-?-?-?- JV- no complaint s today. normal anatomy scan . 08/09/22 -?-?-?-?-?-?-?-?-?-?-?-?- 24w 5d 170 lb 2 oz 126/86 Nega tive -?-?-?-?-?-?-?-?-?-?-?-?- Negative 156 25 -?-?-?-?-?-?-?-?-?-?-?-?- JV- no complaint s today good movement. GCT ordered. 09/06/22 -?-?-?-?-?-?-?-?-?-?-?-?- 28w 5d 174 lb 6 oz 112/70 Nega tive -?-?-?-?-?-?-?-?-?-?-?-?- Negative 144 28 -?-?-?-?-?-?-?-?-?-?-?-?- MH-No Vb. LOF. G ood FM. 28 wk labs, rhogam, larc. Declines tdap. 09/27/22 -?-?-?-?-?-?-?-?-?-?-?-?- 31w 5d 173 lb 8 oz 115/69 Nega tive -?-?-?-?-?-?-?-?-?-?-?-?- Negative 159 32 -?-?-?-?-?-?-?-?-?-?-?-?- JV- normal gct a nd cbc. no complaints. declines tdap. 10/11/22 -?-?-?-?-?-?-?-?-?-?-?-?- 33w 5d 179 lb 2 oz 114/67 Nega tive -?-?-?-?-?-?-?-?-?-?-?-?- Negative 149 33 -?-?-?-?-?-?-?-?-?-?-?-?- -No VB, LOF. G ood Fm. No concerns 10/25/22 -?-?-?-?-?-?-?-?-?-?-?-?- 35w 5d 182 lb 119/69 Negative -?-?-?-?-?-?-?-?-?-?-?-?- Negative 155 36 Cephalic 0 .5 -?-?-?-?-?-?-?-?-?-?-?-?- 50 -3 JV- pt thi nks is leaking fluid. no pooling present. rom+ present, gbs collected. labor precautions discussed 11/01/22 -?-?-?-?-?-?-?-?-?-?-?-?- 36w 5d 184 lb 4 oz 114/70 Nega tive -?-?-?-?-?-?-?-?-?-?-?-?- Negative 140 37 Cephalic -?-?-?-?-?-?-?-?-?-?-?-?- LC- no concerns, no lof/vb/ctx. good fm. gbs negative. 11/07/22 -?-?-?-?-?-?-?-?-?-?-?-?- 37w 4d 186 lb 6 oz 112/64 Nega tive -?-?-?-?-?-?-?-?-?-?-?-?- Negative 141 37 Cephalic 1 -?-?-?-?-?-?-?-?-?-?-?-?- 50 -3 MH-No Vb, LOF. Good FM. No reg CTX 11/15/22 -?-?-?-?-?-?-?-?-?-?-?-?- 38w 5d 183 lb 8 oz 102/61 102/61 -?-?-?-?-?-?-?-?-?-?-?-?- 140 38 Cephalic 3 -?-?-?-?-?-?-?-?-?-?-?-?- 50 -3 KW-+FM. no lof/vb/regular ctx. no concerns 11/20/22 -?-?-?-?-?-?-?-?-?-?-?-?- 39w 3d 183 lb 4 oz 117/77 Nega tive -?-?-?-?-?-?-?-?-?-?-?-?- Negative 140 40 Cephalic 1 .5 -?-?-?-?-?-?-?-?-?-?-?-?- 50 -2 Sm- no vb lof good fm no regular ctx membranes swept 11/25/22 -?-?-?-?-?-?-?-?-?-?-?-?- 40w 1d 187 lb 2.759 oz 124/ 75 120/78 144/90 143/81 145/86 120/56 122/57 139/64 114/56 118/63 109/57 114/58 110/52 109/56 102/57 104/59 108/53 87/51 105/55 105/69 106/59 97/55 -?-?-?-?-?-?-?-?-?-?-?-?- -?-?--?-?-?-?-?-?-?-?-?-?- NST FHR Rate Baby A Baseline: 130 Variability:: Moderate Accelerations:: 15 x 15 Decelerations:: None NST Reactive:: Yes FHR Category:: Category I Uterine Activity:: q3-5 ROS Constitutional Constitutional: Reports systems reviewed and no addt'l complaints, except as documented ENT HEENT: Reports systems reviewed and no addt'l complaints, except as documented Cardiovascular Cardiovascular: Reports systems reviewed and no addt'l complaints, except as documented Respiratory/Chest Respiratory/Chest: Reports systems reviewed and no addt'l complaints, except as documented Gastrointestinal Gastrointestinal: Reports systems reviewed and no addt'l complaints, except as documented and nausea; Denies abdominal pain Genitourinary Genitourinary: Reports systems reviewed and no addt'l complaints, except as documented, contractions Details: present and frequency (regular ) and movement Details: present Musculoskeletal Musculoskeletal: Reports systems reviewed and no addt'l complaints, except as documented Integumentary Integumentary: Reports as per HPI Neurologic Neurologic: Reports systems reviewed and no addt'l complaints, except as documented Endocrine Endocrinology: Reports systems reviewed and no addt'l complaints, except as documented Vital Signs Vital Signs Vital Signs: 11/25/22 16:39 11/25/22 16:39 11/25/22 16:39 Temperature Temperature Source Pulse Rate 86 Blood Pressure 124/75 H BP Systolic 124 BP Diastolic 75 Pulse Ox 100 11/25/22 16:39 11/25/22 16:39 11/25/22 16:39 Temperature 98.2 F Temperature Source Temporal Pulse Rate Blood Pressure BP Systolic BP Diastolic Pulse Ox 100 11/25/22 16:39 11/25/22 16:39 11/25/22 20:23 Temperature 98.2 F Temperature Source Temporal Pulse Rate Blood Pressure 120/78 BP Systolic 120 BP Diastolic 78 Pulse Ox 11/25/22 20:23 11/25/22 21:52 11/25/22 21:52 Temperature Temperature Source Pulse Rate 74 82 Blood Pressure BP Systolic BP Diastolic Pulse Ox 100 11/25/22 21:53 11/25/22 21:53 11/25/22 21:57 Temperature Temperature Source Pulse Rate 84 98 Blood Pressure 144/90 H BP Systolic 144 BP Diastolic 90 Pulse Ox 11/25/22 21:57 11/25/22 21:59 11/25/22 21:59 Temperature Temperature Source Pulse Rate 80 Blood Pressure 143/81 H BP Systolic 143 BP Diastolic 81 Pulse Ox 100 11/25/22 22:03 11/25/22 22:03 11/25/22 22:02 Temperature Temperature Source Pulse Rate 100 Blood Pressure 145/86 H BP Systolic 145 BP Diastolic 86 Pulse Ox 100 Weight Weight: 187 lb 2.759 oz Body Mass Index (BMI) 32.1 Physical Exam Const alert, oriented x3 and healthy appearing Constitutional Narrative: uncomfortable with contractions HEENT normocephalic and moist oral mucous membranes Head and Scalp: atraumatic Neck full ROM, no lymphadenopathy, supple and thyroid normal General: trachea midline Thyroid: thyroid normal Lymph Lymphatic: no lymphadenopathy noted Chest inspection of chest normal Resp normal respiratory effort Cardio regular rate GI normal to inspection, nondistended, normoactive bowel sounds, soft to palpation and non-tender Inspection: gravid external exam normal Bimanual Exam - Vag & Uterus: uterus non-tender Manual OB Exam: estimated gestational size appropriate, presentation cephalic, dilated, effaced and station Extremity normal to inspection General Extremity: Negative for edema Skin no rashes or lesions noted Neuro deep tendon reflexes 2+ bilaterally Motor Exam: strength 5/5 throughout and clonus absent Psych mental status grossly normal Labs Labs Labs: Blood Type A NEGATIVE Antibody Screen NEGATIVE Hct 37.3 % (37-47) Hgb 12.3 g/dL (12.0-15.0) Pap Smear Negative Obstetrics US Syphilis Total Ab Non-reactive Rubella IgG Antibody Reactive (Nonreactive) Hep Bs Antigen Non-Reactive (Nonreactive) Chlamydia DNA (LEILA) Negative (Negative) Neisseria gonorrhoeae DNA ([facility]ILA) Negative (Negative) HIV 1&2 Antibody Non-Reactive (Nonreactive) Glucose 1 Hr 50 gm 98 mg/dL (70-140) Group B Strep DNA Negative (Negative) Rhogam given: Yes Assessment & Plan (1) Anxiety: COMMENT: zoloft started; improved (2) Supervision of high-risk : COMMENT: [id number], CRYSTAL 11/24/22, PC Magdiel, Radhames (3) : QUALIFIERS: Weeks of gestation: 39 weeks Qualified Code(s): Z3A.39 - 39 weeks gestation of COMMENT: Neg GBS. declined genetic & carrier testing. 06/28 nl anatomy, anterior placenta placement. (4) Rh incompatibility in : COMMENT: A negative blood type, Rhogam @ 28 weeks and PRN for bleeding. Rhogam given 09/06/22 (5) Varicose vein of leg: COMMENT: above left knee (6) Active labor at term:
[2022-11-25] MEDS: fentaNYL-bupivacaine (epidural) 100 ML BAG EPIDURAL (22:06)
[2022-11-26] VITALS (42 sets, daily range): BP systolic 87–132; BP diastolic 51–73; PULSE 61–114; RESP 12–16; TEMP 36.1–37.1; O2SAT 97–100
[2022-11-26] MEDS: Ondansetron 4 MG/2 ML Vial IV (00:06)
[2022-11-26] MEDS: Lactated Ringers 1,000 ML 200 ML IV ×2 (02:47→07:40)
[2022-11-26] MEDS: fentaNYL-bupivacaine (epidural) 100 ML BAG EPIDURAL ×2 (02:48→07:39)
[2022-11-26] MEDS: Acetaminophen 500 MG Tablet PO (07:47)
[2022-11-26] MEDS: Oxytocin 10 UNITS/ML Vial IM (08:31)
[2022-11-26] MEDS: Oxytocin 15 Units/NS 250ml 15 UNITS/250 ML IV.SOLN 83 UNITS IV (08:33)
--- NOTE | 2022-11-26 08:42 | OP.PCM_ITS ---
Assessment & Plan (1) Active labor at term: (2) Anxiety: COMMENT: zoloft started; improved (3) Supervision of high-risk : COMMENT: [id number], CRYSTAL 11/24/22, RAIN Veloz, Radhames (4) : QUALIFIERS: Weeks of gestation: 39 weeks Qualified Code(s): Z3A.39 - 39 weeks gestation of COMMENT: Neg GBS. declined genetic & carrier testing. 06/28 nl anatomy, anterior placenta placement. (5) Rh incompatibility in : COMMENT: A negative blood type, Rhogam @ 28 weeks and PRN for bleeding. Rhogam given 09/06/22 (6) Varicose vein of leg: COMMENT: above left knee Maternal Data Information CRYSTAL Calculator Estimated Delivery Date Method Current WG Current Estimate 11/24/22 LMP (Certain) 40w 2d Other Estimates 11/30/22 Ultrasound #1 39w 3d Vaginal Delivery Operative Information Date of Procedure: 11/26/22 Pre-Operative Diagnosis: see a/p diagnoses Post-Operative Diagnosis: same Surgery / Procedure Performed: Spontaneous Vaginal Delivery Type of Anesthesia: Epidural Special Medications: none Estimated Blood Loss: 200 Fluids Replaced: crystalloid Findings Description of Procedure: Patient began pushing and delivered the head in the CYNDEE presentation. The head was delivered atraumatically and a loose nuchal cord ?1 was identified and the delivered through without complication. The anterior and posterior shoulders delivered without complication followed by the rest of the infant and the was placed on the maternal abdomen. Delayed cord clamping was employed for approximately 60 seconds. Cord was clamped and cut and gentle traction was applied to the cord and the placenta delivered spontaneously immediately following it was noted to be intact with three-vessel cord. The perineum and vagina were inspected and noted to have a first degree perineal laceration which was repaired in the usual fashion with 3-0 vicryl rapide. . betadine washroom operator on right inner thigh and small nevi removed stitch with 3-0 rapide EBL was 200 cc. Patient and tolerated delivery well. Amniotic Fluid Description: Lightly stained meconium Placental Delivery Description: Spontaneous Placenta Disposition: [facility] Cord Vessel Description: 3 Vessels Cord Entanglement: None Delayed Cord Clamping: Yes Post Vaginal Delivery Medications Given After Delivery: IV Pitocin Episiotomy Description: None Complication Complications: None Procedures Urinary/Genital [id number]: [id number] [facility]
--- NOTE | 2022-11-26 08:44 | DCINST_ITS ---
Discharge Instructions Diet Discharge Diet: No restrictions Activity Discharge Activity: Return to Normal Activity, May Drive, May Shower and May Take a Tub Bath (in 4 weeks) May resume sexual activity in: 6-8 weeks (after seen by OB provider) Weight Bearing Status: Full weight bearing Lifting Restrictions: none Dressing / Incision Call your doctor if you observe: Fever of 101 or Higher, Inability to urinate, Using more than 1 pad per hour (for more than 2 hours in a row or more), Shortness of breath, Dizziness, Chest pain and - (headache not controlled with tylenol, change in vision) Follow Up Care When: in 6 weeks for visit, call the office to make the appointment. If you had elevated blood pressures call the office to be seen within 1 week. Test Results: Test results from this visit will be discussed in further detail at your follow- up appointment, if applicable. Discharge Plan Admission Admit Date/Time: 11/25/22 19:10 Attending Provider: Rosa Zhou Primary Care Provider: Care Physician,Mia Primary Discharge Orders/Prescriptions Prescriptions: No Action PNV no.63-iron,[id number] 27 mg iron- 800 mcg-200 mg capsule 1 cap PO DAILY sertraline [Zoloft] 50 mg tablet 50 mg PO DAILY Referrals / Follow Up: Care Physician,No Primary [Primary Care Provider] -
[2022-11-26] MEDS: Naproxen 500 MG Tablet PO ×2 (15:21→23:42)
[2022-11-26] MEDS: Acetaminophen 500 MG Tablet 1000 MG PO (20:43)
[2022-11-27] VITALS (7 sets, daily range): BP systolic 116–126; BP diastolic 67–72; PULSE 65–72; RESP 15–16; TEMP 36.5–36.8; O2SAT 98–99
--- NOTE | 2022-11-27 08:50 | PCM.PN.OB ---
Subjective Subjective Patient doing well without complaints. Tolerating PO. Ambulating and voiding without difficulty. Feeding well. Denies chest pain, shortness of breath, calf pain/swelling, fevers, chills, lightheadedness. Objective Data Objective Data Vital Signs: Vital Signs Temp Pulse Resp BP Pulse Ox O2 Del Method 98.1 F 65 15 120/72 98 Room Air 11/27/22 08:00 11/27/22 08:05 11/27/22 08:00 11/27/22 08:05 11/27/22 08:00 11/27/22 08:00 Oxygen Delivery Method Room Air Weight: 187 lb 2.759 oz Body Mass Index (BMI) 32.1 Intake & Output: Intake and Output for Last 24 Hours 11/25/22 11/26/22 11/27/22 23:59 23:59 23:59 Intake Total 91.67 / 91.67 2791.67 / 2791.67 Output Total 1900 / 1900 Balance 91.67 / 91.67 891.67 / 891.67 Lab / Micro Data Result Diagrams: 11/25/22 20:15 Physical Exam Const alert, oriented x3 and no apparent distress Chest inspection of chest normal Resp normal respiratory effort and normal air movement Cardio regular rate and regular rhythm GI GI Narrative: fundus firm, 1 below u. scant lochia. no clots Back/Spine normal ROM and normal to inspection Extremity normal to inspection, full ROM and no calf tenderness Skin no rashes or lesions noted Psych mental status grossly normal Assessment & Plan (1) Vaginal delivery: COMMENT: IAL 40 SM boy Lance PLAN: s/p PPD # 1. routine post delivery care 2. breast feeding- support given 3. rh negative, rhogam per protocol 4. rubella immune 5.d/c home today (2) Rh incompatibility in : COMMENT: A negative blood type, Rhogam @ 28 weeks and PRN for bleeding. Rhogam given 09/06/22
[2022-11-27] MEDS: Sertraline 50 MG Tablet PO (10:10)
[2022-11-27] MEDS: Naproxen 500 MG Tablet PO (10:10)
--- NOTE | 2022-11-27 12:15 | CASEMGMT ---
Social Work Brief Assessment Labor and Delivery Unit Patient Address: [address] [place] [address] , [place] [address] Phone number: [phone] Date of Referral/Notification: 11/27/2022 Time of Referral: 0 Referred By: Dr. Reid Avila Date of Intervention: 11/27/2022 Time of Intervention: Approximately [id number] Reason for Referral: Maternal history of depression and anxiety Informant: Medical record and mother of baby (MOB) Jeri Ridge; father of baby (FOB) Radhames Sabillon present for part of conversation History: KURT is a 29-year-old female, to FOB. During private part of conversation MOB denied any type of domestic violence or safety concerns in this marriage. KURT is 2, para 1 now 2 after delivering boy on 11/26/2022. Infant's weight is 7 pounds 11 ounces. Apgars 9 and 10 at 1 and 5 minutes of life respectively. Minor children for the MOB being and FOB include: Hoople Lance Sabillon (11/26/2022) and Magdiel Sabillon (05/04/2018). 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 MOB reports history of depression and anxiety. MOB reports belief did develop some depression, which was a delayed onset, and reported the oldest child was a bit of a difficult infant to care for. MOB reports she started Lexapro and then was able to eventually wean off of this medication and did well. MOB reports then noticed a flareup of anxiety during this and started on Zoloft, and has felt to have good results. KURT does have a therapist through [employer] program out of [place], doing telehealth as MOB dates. MOB and FOB both deny any type of substance use issues. Assessment: Met with MOB in room, introducing to self and social work role. Able to speak one-on-one with the MOB prior to the FOB arriving back to the room. When FOB arrived back to the room, both parents engaged in conversation with social work. Pleasant, appropriate, and appearing comfortable and relaxed with each other. MOB had a bright affect, good eye contact, and spontaneous in conversation. MOB held the baby throughout social work visit, was attentive and gentle. MOB reports to feel good connection with the already. MOB and FOB reported to have necessary supplies to care for the baby, no concerns with transportation or housing. MOB and FOB lives close to the FOB's family [place]. MOB's mother lives about 20 minutes away. MOB reports to feel well supported between both sides of the family. MOB voiced intent to return back to counseling if starts feeling distressed. Also plans to remain on Zoloft in the timeframe. Provided MOB and FOB with resources on mood and anxiety disorders. MOB excepted information and expressed thanks. No voiced concerns by nursing staff regarding parent-child interactions or bonding. Plan: MOB and will discharge home. Family will be around and able to assist MOB if and as needed. Resources provided for home-going. No further needs requested or indicated. -KHOI Salvador, FE *This note was generated with [employer] software. It may contain incorrect words, spelling, and punctuation that were not noted in review of the chart prior to signing*
== END 2022-11-27 16:10 | disposition home or self-care (01) | DRG 806 ==
LOC: WPOUT 19:14 → WP 19:14
PROVIDERS: Admitting Provider Obstetrics & Gynecology; Referring Provider Obstetrics & Gynecology; Visit Provider Obstetrics & Gynecology
DX: O77.0 Labor and delivery complicated by meconium in amniotic fluid (principal); Z37.0 Single live birth; O36.0930 Maternal care for other rhesus isoimmunization, third trimester, not applicable or unspecified; O99.344 Other mental disorders complicating childbirth; F41.9 Anxiety disorder, unspecified; O69.81X0 Labor and delivery complicated by cord around neck, without compression, not applicable or unspecified; O22.03 Varicose veins of lower extremity in pregnancy, third trimester; O70.0 First degree perineal laceration during delivery; O26.893 Other specified pregnancy related conditions, third trimester; Z67.11 Type A blood, Rh negative; Z3A.39 39 weeks gestation of pregnancy; Z79.899 Other long term (current) drug therapy
CPT/HCPCS: 59025; 59050; 84112; 85025; 86780; 86850; 86900; 86901; 99221; J7120; G0378; J2405

== ENCOUNTER → 2024-01-07 | Outpatient (CLI) | payer OTHER, SELFPAY ==
[2024-01-11 15:08] LABS: HPV APTIMA, High Risk Negative (Negative)
== END | disposition home or self-care (01) ==
LOC: LABSPEC 12:12
PROVIDERS: Referring Provider Nurse Practitioner Women's Health; Visit Provider Nurse Practitioner Women's Health
DX: Z12.4 Encounter for screening for malignant neoplasm of cervix (principal)
CPT/HCPCS: 87624; 88175; G0145